=== PATIENT | male | born 2000 | race Caucasian/White ===

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

== ENCOUNTER 2021-01-09 16:36 | Emergency (ER) | payer SELFPAY ==
[2021-01-09 17:00] VITALS: BP 155/97; PULSE 120
--- NOTE | 2021-01-09 17:49 | EDM.PDOC ---
ED HPI GENERAL MEDICAL PROBLEM - General Chief Complaint: ENT Problem Stated Complaint: 97.25* TEMP, SWOLLEN THROAT, FATIGUE, STUFFY,COUGH Time Seen by Provider: 01/09/21 17:39 Source of Information: Reports: Patient, RN, RN Notes Reviewed History Limitations: Reports: No Limitations - History of Present Illness INITIAL COMMENTS - FREE TEXT/NARRATIVE: Yasmany is a 20 y/o male who presents to the ED via personal vehicle with complaints of cough, sore throat, and congestion. Additionally he notes chills, fatigue, difficulty swallowing, and muscle aches. He states his symptoms started six days ago and have progressively worsened in that time; he was tested for COVID four days ago and was negative. He denies fever, dizziness, vision changes, drooling, dyspepsia, chest pain/pressure, shortness of breath, wheezing, or stridor. He denies nausea, vomiting, abdominal pain, or diarrhea. He has taken no medications for his symptoms. The patient is not vaccinated for COVID. Throat Pain Score (Numeric/FACES): 6 - Related Data Allergies Allergy/AdvReac Type Severity Reaction Status Date / Time No Known Allergies Allergy Verified 06/17/17 02:08 Home Meds: Home Meds Acetaminophen/HYDROcodone [[place] 325-10 MG] 1 tab PO Q4H 02/26/15 [History] Ibuprofen [Motrin] 800 mg PO Q6H 02/26/15 [History] Past Medical History - Past Health History Medical/Surgical History: Denies Medical/Surgical History HEENT History: Reports: None Cardiovascular History: Reports: None Respiratory History: Reports: None Gastrointestinal History: Reports: None Genitourinary History: Reports: None Musculoskeletal History: Reports: None Neurological History: Reports: None Psychiatric History: Reports: None Endocrine/Metabolic History: Reports: None Hematologic History: Reports: None Immunologic History: Reports: None Oncologic (Cancer) History: Reports: None Dermatologic History: Reports: None - Infectious Disease History Infectious Disease History: Reports: MRSA - Past Surgical History Head Surgeries/Procedures: Reports: None Social & Family History - Caffeine Use Caffeine Use: Reports: None - Recreational Drug Use Recreational Drug Use: No ED ROS ENT - Review of Systems Review Of Systems: Comprehensive ROS is negative, except as noted in HPI. ED EXAM, ENT - Physical Exam Exam: See Below Exam Limited By: No Limitations General Appearance: Alert, No Apparent Distress Eye Exam: Bilateral Eye: EOMI, Normal Inspection, PERRL (3mm) Ears: Normal External Exam, Normal Canal, Hearing Grossly Normal, Normal TMs Nose: Normal Inspection, Normal Mucousa, No Blood Mouth/Throat: Muffled Voice, Pharyngeal Erythema, Throat Pain, Tonsillar Erythema, Tonsillar Swelling (+3, bilaterally). No: Dental Abcess, Dental Pain, Dental Tenderness, Drooling, Hoarse Voice, Throat Swelling, Tongue Swelling, Tonsillar Exudates Head: Atraumatic, Normocephalic Neck: Normal Inspection, Supple, Non-Tender, Full Range of Motion. No: Lymphadenopathy (L), Lymphadenopathy (R) Respiratory/Chest: No Respiratory Distress, Lungs Clear, Normal Breath Sounds, No Accessory Muscle Use, Chest Non-Tender. No: Crackles, Rales, Rhonchi, Wheezing, Stridor Cardiovascular: Normal Peripheral Pulses, Regular Rate, Rhythm, No Edema, No Gallop, No Murmur, No Rub, Tachycardia GI/Abdominal: Normal Bowel Sounds, Soft, Non-Tender (Male) Exam: Deferred Rectal (Males) Exam: Deferred Back: Normal Inspection Extremities: Normal Inspection, Normal Range of Motion, Normal Capillary Refill Neurological: Alert, Oriented, CN II-XII Intact, Normal Cognition, Normal Gait, No Motor/Sensory Deficits Psychiatric: Normal Affect, Normal Mood Skin: Warm, Dry, Intact, Normal Color, No Rash. No: Cyanosis, Jaundice, Mottled, Pallor Course - Vital Signs Last Recorded V/S: Last Vital Signs Temp 98.5 F 01/09/21 16:58 Pulse 120 H 01/09/21 16:58 Resp 18 01/09/21 16:58 BP 155/97 H 01/09/21 16:58 Pulse Ox 96 01/09/21 16:58 - Orders/Labs/Meds Labs: Laboratory Tests 01/09/21 Range/Units 16:47 SARS-CoV-2 RNA (JONATHAN) Negative (NEGATIVE) Meds: Medications Discontinued Medications Generic Name Dose Route Start Last Admin Trade Name Freq PRN Reason Stop Dose Admin Amoxicillin/Clavulanate Potassium 1 tab 01/09/21 18:10 01/09/21 18:19 Amoxicillin/Clavulanate K 875-125 Mg Tab PO 01/09/21 18:11 1 tab ONETIME ONE Administration - Re-Assessments/Exams Free Text/Narrative Re-Assessment/Exam: 01/09/21 COVID and Strep tests sent. COVID and Strep negative. Findings of examination and lab work reviewed with patient. Will treat empirically for pharyngitis with Augmentin. Supportive cares for pharyngitis discussed. Patient instructed to follow up with primary care provider regarding todays visit. Red flag signs and symptoms which would warrant immediate reevaluation reviewed. Patient verbalized understanding and agreement with the plan of care. Departure - Departure Time of Disposition: 18:12 Disposition: Home, Self-Care 01 Condition: Good Clinical Impression: Pharyngitis Qualifiers: Pharyngitis/tonsillitis etiology: unspecified etiology Qualified Code(s): J02.9 - Acute pharyngitis, unspecified - Discharge Information *PRESCRIPTION DRUG MONITORING PROGRAM REVIEWED*: Not Applicable *COPY OF PRESCRIPTION DRUG MONITORING REPORT IN PATIENT RACHELL: Not Applicable Instructions: Pharyngitis, Sore Throat Forms: ED Department Discharge Care Plan Goals: Rx: Augmentin 875/125mg (#20) 1.) Take all of your antibiotic until gone, even as symptoms improve. 2.) You may take ibuprofen (Advil/Motrin) 400mg every six hours, as pain and sw elling persist. You may also take acetaminophen (Tylenol) 650mg every six hours, as pain persists. You may stagger these medications so you are taking a dose of either every three hours. 3.) You use warm salt water gargles to help alleviate throat pain. 4.) Eat a yogurt daily, or take a probiotic, to protect gut health while taking antibiotics. 5..) Follow up with your primary care provider should symptoms persist or worsen despite medications. Sepsis Event Note (ED) - Evaluation Sepsis Screening Result: No Definite Risk
[2021-01-09] MEDS ORDERED: Amoxicillin/Clavulanate K 875-125 MG Tab PO ONE (18:10)
== END 2021-01-09 18:24 | disposition home or self-care (01) ==
LOC: DL.ED 16:36
DX: J02.9 Acute pharyngitis, unspecified (principal); Z20.822 Contact with and (suspected) exposure to COVID-19
CPT/HCPCS: 87081; 87430; 99283; A9270-GY; U0002